=== PATIENT | male | born 1985 | race Two or more races ===

== ENCOUNTER 2023-08-15 18:51 | Emergency (ER) | payer OTHER ==
[~2023-08-15] VITALS: Ht 177.8 cm; Wt 102.1 kg
[2023-08-15] MEDS ORDERED: ZESTRIL20 MG PO (19:15)
== END 2023-08-16 03:35 ==
LOC: ER 18:51
DX: I10 Essential (primary) hypertension (principal); K21.9 Gastro-esophageal reflux disease without esophagitis